=== PATIENT | male | born 1970 | race Caucasian/White ===

== ENCOUNTER 2021-12-25 11:58 | Outpatient (CLI) | payer OTHER, SELFPAY ==
--- NOTE | 2021-12-25 12:15 | XR_ITS ---
WS: [id number] Lumbar spine, 3 views, 12/25/2021 Clinical Data: SCIATICA Comparison: Lumbar spine, 08/29/2009. Findings: No compression fractures or subluxation is seen. Generative disc narrowing is present at all levels.. The transverse processes and SI joints are normal. Anterior osteoarthritic spurring is present at all lumbar vertebral bodies. XR/XR lumbar spine 2-3V* [id number] Impression: Multilevel degenerative disc narrowing and osteoarthritic spurring.
== END 2021-12-25 11:59 | disposition home or self-care (01) ==
LOC: RAD 12:04
PROVIDERS: PCP Clinical Nurse Specialist Adult Health; Visit Provider Clinical Nurse Specialist Adult Health
DX: M54.30 Sciatica, unspecified side (principal)
CPT/HCPCS: 72100